=== PATIENT | male | born 1960 | race African-American/Black ===

== ENCOUNTER 2016-10-23 20:40 | Emergency (ER) | payer MEDICAID, OTHER ==
[~2016-10-23] VITALS: Ht 175.3 cm; Wt 94.3 kg
[~2016-10-23 20:40] MED LIST: NKM; UNOBMED
[2016-10-23 21:09] VITALS: BP 139/89
[2016-10-23] MEDS ORDERED: Norco 5mg/325mg tab ORAL ONE (21:15)
[2016-10-23 21:50] LABS: BASOPHILS % (AUTO) 0.8 % (0.0-2.0); EOSINOPHILS % (AUTO) 0.8 % (0.0-3.0); LYMPHOCYTES % (AUTO) 24.9 % (20.0-45.0); MEAN CORPUSCULAR HEMOGLOBIN 30.8 PG (27.0-31.0); MEAN CORPUSCULAR HGB CONC 32.2 G/DL (32.0-36.0); MEAN CORPUSCULAR VOLUME 96 FL (80-99); MONOCYTES % (AUTO) 7.2 % (1.0-10.0); NEUTROPHILS % (AUTO) 66.4 % (45.0-75.0); PLATELET COUNT 239 K/UL (150-450); RED BLOOD COUNT 5.63 M/UL (4.70-6.10); RED CELL DISTRIBUTION WIDTH 12.5 % (11.6-14.8); WHITE BLOOD COUNT 8.6 K/UL (4.8-10.8)
[2016-10-23 22:00] LABS: TROPONIN I < 0.30 ng/mL (<=0.30)
[2016-10-23 22:03] LABS: ACETAMINOPHEN < 10 ug/mL (10-30); ALANINE AMINOTRANSFERASE 30 U/L (3-41); ALBUMIN/GLOBULIN RATIO 1.7 (1.0-2.7); ALCOHOL 320 mg/dL; ANION GAP 18 (5-15); ASPARTATE AMINO TRANSFERASE 25 U/L (5-40); CALCIUM 9.3 mg/dL (8.6-10.2); CARBON DIOXIDE 26 mEQ/L (20-30); CHLORIDE 100 mEQ/L (98-107); CREATININE 0.9 mg/dL (0.7-1.2); GLOMERULAR FILTRATION RATE > 60 mL/min (>60); HEMOLYSIS 8; POTASSIUM 4.1 mEQ/L (3.4-4.9); SODIUM 144 mEQ/L (135-145); TOTAL PROTEIN 7.5 g/dL (6.6-8.7)
[2016-10-23 22:14] LABS: CKMB 3.5 ng/mL (< 6.7)
[2016-10-23 22:46] VITALS: BP 139/77
[2016-10-23 23:23] VITALS: BP 137/76
[2016-10-23] MEDS ORDERED: ACETAMINOPHEN-1 EAC1 ORAL (23:47)
[2016-10-24 00:02] VITALS: BP 138/75
--- NOTE | 2016-10-24 02:28 | Emergency Room Report ---
History of Present Illness General Chief Complaint: Laceration Source: EMS Present Illness HPI 56-year-old male presents ED for evaluation. Per EMS patient was drinking tonight and had a mechanical trip and fall hitting his head. Bleeding above his left eye. No reported LOC. Patient admits to drinking tonight. Denies any drug use. Complaining of some pain, throbbing, 8/10 localized above the left eye, nonradiating. No aggravating relieving factors. No photophobia blurry vision nausea or vomiting. Denies neck pain, chest pain, shortness of breath. Denies any other associated symptoms Allergies: Coded Allergies: No Known Allergies (Unverified , 04/18/16) Patient History Past Medical History: HTN Past Surgical History: none Pertinent Family History: none Social History: Reports: alcohol use, Denies: drug use, smoking Immunizations: UTD Reviewed Nursing Documentation: PMH: Agreed, PSxH: Agreed Nursing Documentation-PMH Past Medical History: No History, Except For Hx Hypertension: Yes Review of Systems All Other Systems: negative except mentioned in HPI Physical Exam Vital Signs Date Time Temp Pulse Resp B/P Pulse Ox O2 Delivery O2 Flow Rate FiO2 10/23/16 20:26 98.8 84 20 148/92 100 Room Air Sp02 EP Interpretation: reviewed, normal General Appearance: no apparent distress, alert, GCS 15, non-toxic Head: normocephalic, other - 1cm superficial laceration above L eye Eyes: bilateral eye PERRL, bilateral eye normal inspection ENT: hearing grossly normal, normal pharynx, no angioedema, normal voice Neck: normal inspection Respiratory: chest non-tender, lungs clear, normal breath sounds, speaking full sentences Cardiovascular #1: regular rate, rhythm, no edema Gastrointestinal: normal bowel sounds, non tender, soft, non-distended, no guarding, no rebound Rectal: deferred Genitourinary: no CVA tenderness Musculoskeletal: normal inspection Neurologic: alert, oriented x3, responsive, motor strength/tone normal, sensory intact, speech normal Psychiatric: normal inspection Skin: normal inspection Lymphatic: normal inspection Procedures Laceration/Wound Repair Laceration/Wound Repair : Consent: Verbal Wound Location: head Wound's Depth, Shape: superficial, linear Wound Explored: clean Betadine Prep?: No Wound Debrided: minimal Wound Repaired With: Dermabond Layer Closure?: No Sterile Dressing Applied?: No Splint Applied?: No Sling Applied?: No Patient Tolerated: Well Complications: None Medical Decision Making Diagnostic Impression: Primary Impression: Head injury Qualified Codes: S09.90XA - Unspecified injury of head, initial encounter Additional Impression: Acute alcohol intoxication Qualified Codes: F10.120 - Alcohol abuse with intoxication, uncomplicated ER Course Hospital Course 56-year-old male presents ED s/p trip and fall with head injury. Positive EtOH Differential diagnoses include: arrythmia, dehydration, intracranial bleed, seizure Clinical course Patient placed on stretcher. on clinical biochemist. After initial history and physical I ordered labs, EKG, IVFs, CT Brain labs reviewed- no leukocytosis, Hb/Hct stable, electrolytes ok, troponins negative, ETOH 320 CT Brain - unremarkable EKG - NSR Laceration repaired with Dermabond. Patient is now clinically sober, ambulating without difficulty. Patient to be safely discharged to home I. I feel this is a highly complex case requiring extensive working including EKG/Rhythm strip, Xray/CT/US, Blood/urine lab work, repeat exams while in ED, and administration of strong opiates/narcotics for pain control, admission to hospital or close patient follow up. Diagnosis - head injury, ETOH intoxication Stable and discharged to home with Rx Tylenol #3. Followup with PMD. Return to ED if symptoms recur or worsen Labs Test 10/23/16 21:30 White Blood Count 8.6 K/UL (4.8-10.8) Red Blood Count 5.63 M/UL (4.70-6.10) Hemoglobin 17.3 G/DL (14.2-18.0) Hematocrit 53.8 % (42.0-52.0) Mean Corpuscular Volume 96 FL (80-99) Mean Corpuscular Hemoglobin 30.8 PG (27.0-31.0) Mean Corpuscular Hemoglobin Concent 32.2 G/DL (32.0-36.0) Red Cell Distribution Width 12.5 % (11.6-14.8) Platelet Count 239 K/UL (150-450) Mean Platelet Volume 8.0 FL (6.5-10.1) Neutrophils (%) (Auto) 66.4 % (45.0-75.0) Lymphocytes (%) (Auto) 24.9 % (20.0-45.0) Monocytes (%) (Auto) 7.2 % (1.0-10.0) Eosinophils (%) (Auto) 0.8 % (0.0-3.0) Basophils (%) (Auto) 0.8 % (0.0-2.0) Sodium Level 144 mEQ/L (135-145) Potassium Level 4.1 mEQ/L (3.4-4.9) Chloride Level 100 mEQ/L (98-107) Carbon Dioxide Level 26 mEQ/L (20-30) Anion Gap 18 (5-15) Blood Urea Nitrogen 10 mg/dL (7-23) Creatinine 0.9 mg/dL (0.7-1.2) Estimat Glomerular Filtration Rate > 60 mL/min (>60) Glucose Level 104 mg/dL (74-106) Calcium Level 9.3 mg/dL (8.6-10.2) Total Bilirubin 0.3 mg/dL (0.0-1.2) Aspartate Amino Transf (AST/SGOT) 25 U/L (5-40) Alanine Aminotransferase (ALT/SGPT) 30 U/L (3-41) Alkaline Phosphatase 66 U/L (40-129) Total Creatine Kinase 272 U/L (38-174) Creatine Kinase MB 3.5 ng/mL (< 6.7) Creatine Kinase MB Relative Index 1.2 Troponin I < 0.30 ng/mL (<=0.30) Total Protein 7.5 g/dL (6.6-8.7) Albumin 4.8 g/dL (3.5-5.2) Globulin 2.7 g/dL Albumin/Globulin Ratio 1.7 (1.0-2.7) Salicylates Level < 1 mg/dL (10-30) Urine Opiates Screen Negative (NEGATIVE) Acetaminophen Level < 10 ug/mL (10-30) Urine Barbiturates Screen Negative (NEGATIVE) Phencyclidine (PCP) Screen Negative (NEGATIVE) Urine Amphetamines Screen Negative (NEGATIVE) Urine Benzodiazepines Screen Negative (NEGATIVE) Urine Cocaine Screen Negative (NEGATIVE) Urine Marijuana (THC) Screen Negative (NEGATIVE) Serum Alcohol 320 mg/dL EKG Diagnostic Results Rate: normal Rhythm: NSR ST Segments: no acute changes ASA given to the pt in ED: No Rhythm Strip Diag. Results EP Interpretation: yes Rhythm: NSR, no PVC's, no ectopy CT/MRI/US Diagnostic Results CT/MRI/US Diagnostic Results : Imaging Test Ordered: CT head Impression no acute process Last Vital Signs Date Time Temp Pulse Resp B/P Pulse Ox O2 Delivery O2 Flow Rate FiO2 10/24/16 00:02 89 21 138/75 98 Room Air 10/23/16 23:23 98.1 Status: improved Disposition: HOME, SELF-CARE Condition: Stable Scripts Acetaminophen With Codeine (T#3) (TYLENOL #3 TAB*) Y Tab 1 TAB ORAL Q8H Y for For Pain, #20 TAB Prov: BO MADRIGAL M.D. 10/23/16 Patient Instructions: Facial Laceration, [id number] BO MADRIGAL M.D. Oct 24, 2016 02:28
--- NOTE | 2016-10-24 10:14 | Diagnostic Imaging Report ---
Indication: Head trauma Technique: Contiguous 5 mm thick transaxial imaging of the head obtained in a Siem[employer] Sensation [address] scanner. Soft tissue and bone windows generated. Total Dose length Product (DLP): [address] Dose Index Volume (CTDIvol): 70.38 mGy Comparison: none Findings: There is mild prominence of the ventricles, basal cisterns, and cerebral sulci consistent with atrophy. Mild, nonspecific, white matter hypoattenuation is noted throughout the brain consistent with chronic small vessel disease. There is no midline shift, edema, acute hemorrhage, mass effect, or abnormal extra-axial fluid collections. Small laceration noted in the left frontal scalp. Bones are unremarkable. Impression: No acute intracranial bleed, mass effect or edema. Mild atrophy of the brain. Nonspecific white matter hypoattenuation probably due to chronic small vessel disease. Left frontal scalp laceration. The CT scanner at [facility] is accredited by the [employer] and the scans are performed using protocols designed to limit radiation exposure to as low as reasonably achievable to attain images of sufficient resolution adequate for diagnostic evaluation.
== END 2016-10-24 00:04 | disposition home or self-care (01) ==
LOC: EDBD 20:40 → EMR 20:45
DX: S01.81XA Laceration without foreign body of other part of head, initial encounter (principal); S09.90XA Unspecified injury of head, initial encounter; F10.120 Alcohol abuse with intoxication, uncomplicated; I10 Essential (primary) hypertension; W01.0XXA Fall on same level from slipping, tripping and stumbling without subsequent striking against object, initial encounter; Y92.9 Unspecified place or not applicable; Y99.8 Other external cause status
CPT/HCPCS: 12011; 36415; 70450; 80053; 80300; 80329; 82550; 82553; 84484; 85025; 96360; 99284; Z7502